=== PATIENT | male | born 1955 | race Caucasian/White ===

== ENCOUNTER 2016-12-02 21:09 | Emergency (ER) | payer OTHER ==
[~2016-12-02] VITALS: Ht 188 cm; Wt 107.0 kg
[2016-12-02 21:16] VITALS: TEMP 36.5; Ht 188 cm; Wt 107.0 kg
--- NOTE | 2016-12-02 21:50 | EMERGENCY ROOM VISIT NOTE ---
History Report prepared by Tyra: Rachael Maxwell Under the Supervision of: Dr. Rai Chu M.D. First contact with patient: 21:36 Chief Complaint: LEG PAIN,LEG INJURY Stated Complaint: SEVERE RT LEG PAIN, THE WHOLE WAY DOWN TO FOOT History of Present Illness The patient is a 61 year old male who presents to the Emergency Room with complaints of worsening right calf pain starting 9.5 hours [employer]ER. The patinet currently rates the pain as a 5/10 in severity. The patient states he was sitting at work at started to have an ache of the right leg. He states that throughout the day the pain increased and states that his foot felt like it was asleep. The patient states that he does not have any chest pain, abdominal pain , shortness of breath, blood in stool or urine. The patient states that he has not had any recent injury to the right leg. He states that he does travel frequently by car for his job. The patient states that the pain feels better when he is walking on his right leg. The patient states that he does not take any blood thinners but states he takes an aspirin daily. Source of History: patient, family Onset: 9.5 hours [employer]ER Position: leg (right calf) Symptom Intensity: 5/10 Quality: ache, other (felt like foot was asleep) Timing: worsening Modifying Factors (Relieving): other (walking on leg) Associated Symptoms: No SOB, No chest pain Note: Patient denies blood in stool or urine, recent injury Review of Systems See HPI for pertinent positives & negatives. A total of 10 systems reviewed and were otherwise negative. Past Medical & Surgical Medical Problems: (1) Hypertension Old medical records were reviewed. Nurse's notes were reviewed and I agree with. No history of DVT/PE/cardiac disease Family History No pertinent family history stated. Social History Smoking Status: Never Smoker Marital Status: single Housing Status: lives alone Occupation Status: employed Current/Historical Medications Scheduled Aspirin (Aspirin Ec), 325 MG PO DAILY Atorvastatin (Lipitor), 40 MG PO DAILY Fish Oil ([place]-3), 1 CAP PO TID Lisinopril (Lisinopril), 2.5 MG PO DAILY Allergies Coded Allergies: No Known Allergies (Unverified , 03/29/14) Physical Exam Vital Signs Date Time Temp Pulse Resp B/P Pulse Ox O2 Delivery O2 Flow Rate FiO2 12/02/16 23:28 67 16 143/80 93 12/02/16 22:35 70 16 131/73 92 Room Air 12/02/16 21:16 36.5 80 18 153/92 93 Room Air Physical Exam General: Non ill appearing middle aged male in no acute distress. HEENT: Normal cephalic atraumatic. Pupils are equal round and reactive to light. Extraocular movements are intact. Oropharynx is pink with moist mucous membranes. No swelling of the mouth lips or tongue. Neck: Supple with a midline trachea. No meningeal signs or stiffness, no JVD or bruits. No Stridor. Chest: Clear to auscultation bilaterally. No wheezes or rhonchi. No increased work of breathing. Heart: regular rate and rhythm. Abdomen: Soft nontender, nondistended without rebound guarding or rigidity. Extremities: No cyanosis clubbing or edema. Right lower extremity: foot is pink and well perfused appearing. good capillary refill similar appearing to other foot. Normal motor and sensation. Normal DP and PT pulses. Normal Achilles function, no redness or warmth around the joint. tenderness along the lateral posterior calf. Spine/Back. Non tender to palpation. No CVA tenderness Skin: Good turgor without rashes. Neurologic exam: Cranial nerves two through 12 are intact. Motor and sensation are intact and symmetrical throughout. Medical Decision & Procedures ER Provider Diagnostic Interpretation: US results as stated below per my review and radiologist interpretation: Venous Doppler right leg RIGHT VENOUS DOPP LOWER EXT UNILAT CLINICAL HISTORY: Leg swelling/pain Right pain. Edema. TECHNIQUE: Venous Doppler COMPARISON STUDY: None FINDINGS: Normal study IMPRESSION: Normal study Electronically signed by: Ad Glover M.D. 12/02/2016 10:27 PM Dictated Date/Time: 12/02/2016 10:27 PM X-ray results as stated below per interpretation by me: Tibia /Fibula X-Ray Right: No fracture, dislocation or bony abnormalities. Laboratory Results 12/02/16 22:00 Red Blood Count 4.93, Mean Corpuscular Volume 89.9, Mean Corpuscular Hemoglobin 31.4, Mean Corpuscular Hemoglobin Concent 35.0, Mean Platelet Volume 8.4, Neutrophils (%) (Auto) 48.9, Lymphocytes (%) (Auto) 35.2, Monocytes (%) (Auto) 12.3, Eosinophils (%) (Auto) 2.9, Basophils (%) (Auto) 0.6, Neutrophils # (Auto ) 3.89, Lymphocytes # (Auto) 2.80, Monocytes # (Auto) 0.98, Eosinophils # (Auto ) 0.23, Basophils # (Auto) 0.05 12/02/16 22:00 Test 12/02/16 22:00 White Blood Count 7.96 K/uL (4.8-10.8) Red Blood Count 4.93 M/uL (4.7-6.1) Hemoglobin 15.5 g/dL (14.0-18.0) Hematocrit 44.3 % (42-52) Mean Corpuscular Volume 89.9 fL (80-100) Mean Corpuscular Hemoglobin 31.4 pg (25-34) Mean Corpuscular Hemoglobin Concent 35.0 g/dl (32-36) Platelet Count 210 K/uL (130-400) Mean Platelet Volume 8.4 fL (7.4-10.4) Neutrophils (%) (Auto) 48.9 % Lymphocytes (%) (Auto) 35.2 % Monocytes (%) (Auto) 12.3 % Eosinophils (%) (Auto) 2.9 % Basophils (%) (Auto) 0.6 % Neutrophils # (Auto) 3.89 K/uL (1.4-6.5) Lymphocytes # (Auto) 2.80 K/uL (1.2-3.4) Monocytes # (Auto) 0.98 K/uL (0.11-0.59) Eosinophils # (Auto) 0.23 K/uL (0-0.5) Basophils # (Auto) 0.05 K/uL (0-0.2) RDW Standard Deviation 41.7 fL (36.4-46.3) RDW Coefficient of Variation 12.7 % (11.5-14.5) Immature Granulocyte % (Auto) 0.1 % Immature Granulocyte # (Auto) 0.01 K/uL (0.00-0.02) Prothrombin Time 10.9 SECONDS (9.0-12.0) Prothromb Time International Ratio 1.0 (0.9-1.1) Activated Partial Thromboplast Time 30.2 SECONDS (21.0-31.0) Partial Thromboplastin Ratio 1.2 Anion Gap 8.0 mmol/L (3-11) Est Creatinine Clear Calc Drug Dose 99.8 ml/min Estimated GFR () 93.1 Estimated GFR (Non- 80.3 BUN/Creatinine Ratio 16.4 (10-20) Calcium Level 9.0 mg/dl (8.5-10.1) Total Bilirubin 0.7 mg/dl (0.2-1) Direct Bilirubin mg/dl (0-0.2) Aspartate Amino Transf (AST/SGOT) 19 U/L (15-37) Alanine Aminotransferase (ALT/SGPT) 33 U/L (12-78) Alkaline Phosphatase 68 U/L (45-117) Total Protein 7.4 gm/dl (6.4-8.2) Albumin 4.1 gm/dl (3.4-5.0) Lipase 81 U/L (73-393) Chemistry Specimen Hemolysis Laboratory studies as stated above per my review. ED Course 2139: Past medical records reviewed. The patient was evaluated in room A11B, and a complete history and physical examination were performed. 2: I reevaluated the patient and he was at ultrasound. 2251: The patient is resting comfortably and I ordered an X-ray on the patient. 2320: Upon reevaluation, the patient is resting comfortably. I discussed the results and treatment plan with him. He verbalized agreement of the treatment plan. The patient was discharged home. Medical Decision Differentials include, but are not limited to; DVT, fracture, electrolyte or metabolic abnormality, infection, neurologic process, arterial compromise. This patient comes in as described above he has pain in his right calf and lateral aspect is been no trauma. He is neurologically and neurovascularly intact and has bounding distal pulses and no evidence suggest arterial compromise or compartment syndrome. His compartments are soft. He has no redness or warmth or anything to suggest infection or cellulitis. His joints are normal without evidence suggest inflammatory joint process. X-ray shows no bony abnormality or process. Ultrasound was unremarkable and shows no evidence of DVT or abnormality. He has no acute electrolyte or metabolic abnormalities. He is feeling better and would like to go home. I will discharge him home. He will return if worsening of symptoms, increasing pain, numbness or weakness, fever or chills, any new problems concerns. He was happy with plan and discharged to home. He should follow-up with his doctor in the next couple days for recheck if not better. Impression Primary Impression: Right calf pain Scribe Attestation The scribe's documentation has been prepared under my direction and personally reviewed by me in its entirety. I confirm that the note above accurately reflects all work, treatment, procedures, and medical decision making performed by me. Departure Information Dispostion Home / Self-Care Referrals Derick Gr M.D. (PCP) Forms HOME CARE DOCUMENTATION FORM, IMPORTANT VISIT INFORMATION Patient Instructions [facility] Additional Instructions Rest Use Ibuprofen 400 mg evry 6 hours as needed. Take with food Return if: Increasing pain, worsening symptoms, fever or chills, numbness weakness, any new problems or concerns. Follow-up with your doctor in 1-2 days for recheck if not better
[2016-12-02 22:23] LABS: BASO % 0.6 %; BASO ABS # 0.05 K/uL (0-0.2); COMPLETE YES; EOS % 2.9 %; HEMATOCRIT 44.3 % (42-52); IG% 0.1 %; LYMPH % 35.2 %; MEAN CELL VOLUME 89.9 fL (80-100); MEAN CORPUSCULAR HEMOGLOBIN 31.4 pg (25-34); MEAN PLATELET VOLUME 8.4 fL (7.4-10.4); MONO % 12.3 %; NEUT % 48.9 %; PLATELET COUNT 210 K/uL (130-400); RED BLOOD COUNT 4.93 M/uL (4.7-6.1); WHITE BLOOD COUNT 7.96 K/uL (4.8-10.8)
[2016-12-02] MEDS ORDERED: OMEG10007 PO (22:26)
[2016-12-02] MEDS ORDERED: ATOR-24 PO (22:26)
[2016-12-02] MEDS ORDERED: LISI2.5T5 PO (22:26)
[2016-12-02] MEDS ORDERED: ASPI325T39 PO (22:26)
--- NOTE | 2016-12-02 22:29 | DIAGNOSTIC IMAGING REPORT ---
Venous Doppler right leg RIGHT VENOUS DOPP LOWER EXT UNILAT CLINICAL HISTORY: Leg swelling/pain Right pain. Edema. TECHNIQUE: Venous Doppler COMPARISON STUDY: None FINDINGS: Normal study IMPRESSION: Normal study Electronically signed by: Ad Glover M.D. 12/02/2016 10:27 PM Dictated Date/Time: 12/02/2016 10:27 PM
[2016-12-02 22:49] LABS: PARTIAL THROMBOPLASTIN RATIO 1.2; PROTHROMBIN TIME (PATIENT) 10.9 SECONDS (9.0-12.0)
[2016-12-02 22:52] LABS: BLOOD UREA NITROGEN 16 mg/dl (7-18); BUN/CREATININE RATIO 16.4 (10-20); CARBON DIOXIDE 28 mmol/L (21-32); CHLORIDE 105 mmol/L (98-107); GLUCOSE 134 mg/dl (70-99); POTASSIUM 3.7 mmol/L (3.5-5.1); SODIUM 141 mmol/L (136-145)
[2016-12-02 23:28] VITALS: BP 143/80; PULSE 67; O2SAT 93
[2016-12-02 23:42] LABS: ALKALINE PHOSPHATASE 68 U/L (45-117); ALT/SGPT 33 U/L (12-78); AST/SGOT 19 U/L (15-37)
--- NOTE | 2016-12-03 07:45 | DIAGNOSTIC IMAGING REPORT ---
RIGHT TIBIA AND FIBULA 2 VIEWS CLINICAL HISTORY: Right leg pain. FINDINGS: AP and lateral portable views of the right tibia and fibula are obtained. No prior studies are available for comparison at the time of dictation. The skeletal structures are well mineralized. No fracture is seen. The knee and ankle joints are grossly maintained. Soft tissue edema is present in the calf. IMPRESSION: Soft tissue edema with no fracture identified. Electronically signed by: Raffy Coleman M.D. 12/03/2016 7:43 AM Dictated Date/Time: 12/03/2016 7:42 AM
== END 2016-12-02 23:29 | disposition home or self-care (01) ==
LOC: C.EDB 21:11 → C.EDA 23:29
DX: M79.604 Pain in right leg (principal); I10 Essential (primary) hypertension; Z79.82 Long term (current) use of aspirin